=== PATIENT | female | born 1940 | race Caucasian/White ===

== ENCOUNTER 2017-02-24 09:57 | Outpatient (CLI) | payer OTHER ==
--- NOTE | 2017-02-24 10:46 | DIAGNOSTIC IMAGING REPORT ---
PROCEDURE: DEXA BONE DENSITY STUDY CLINICAL INDICATION: SCREENING COMPARISON: DEXA dated 11/17/2014 FINDINGS: LUMBAR SPINE: Bone mineral density 1.174 g/cm2, T score 1.2 normal which represents a 1.2% decrease from the previous study LEFT HIP: Bone mineral density 0.871 g/cm2, T score -0.6 normal which represents a 6.5% decrease from the previous study LEFT FEMORAL NECK: Bone mineral density 0.701 g/cm2, T score -1.3 osteopenia which represents a 9% decrease from the previous study FRACTURE RISK CALCULATION ( when applicable): 10-year fracture risk of a major osteoporotic fracture 10% and of a hip fracture 1.8% (T score greater or equal to -1.0 to: NORMAL) (T score from -1.1 to -2.4: OSTEOPENIA) (T score ess than or equal to -2.5: OSTEOPOROSIS) IMPRESSION: 1. Femoral neck osteopenia with a 10-year major fracture risk of 10% and a hip fracture risk of 1.8%
--- NOTE | 2017-02-26 12:51 | DIAGNOSTIC IMAGING REPORT ---
PROCEDURE: MG BILATERAL SCREENING W/CAD INDICATION: SCREENING TECHNIQUE: Bilateral CC and MLO digital views. COMPARISON: Mammograms 11/17/2014, 11/14/2013 and right mammogram 11/11/2012. FINDINGS: Computer-aided detection applied. Mildly to moderately dense. No change. IMPRESSION: 1. Negative mammogram RESULT CODE: 1- Negative. A. A negative report should not delay biopsy if a dominant or clinically suspicious mass is present. 10-15% of cancers are not identified by x-ray. B. A negative report may reinforce clinical impression. C. Adenosis and dense breasts may obscure an underlying neoplasm. D. False positive reports average 6-10%. E.. A yearly screening mammogram is recommended. A reminder letter will be scheduled.
== END 2017-02-24 23:00 ==
LOC: MAM SRH 09:57
DX: Z12.31 Encounter for screening mammogram for malignant neoplasm of breast (principal); M85.88 Other specified disorders of bone density and structure, other site

== ENCOUNTER 2017-06-12 19:11 | Emergency (ER) | payer OTHER ==
--- NOTE | 2017-06-12 21:47 | ED CLINICAL REPORT ---
Clinical Report - Physicians/Mid Levels [facility] [address] [place] [address] 06/12/2017 19:14 [id number] Time Seen: 19:58. Arrived- By private vehicle. Historian- patient. HISTORY OF PRESENT ILLNESS Chief Complaint: Chief Complaint- face and Injury to right and left forearm. The injury happened just prior to arrival. The patient sustained a laceration from a blunt force (on her right forearm). She sustained a severe direct blow (The patient was driving her tractor. She accidentally struck a treewith the tractor and a large branch fell glancing off of her face and striking both of her forearms. She had no loss of consciousness And does not feel confused or dazed.). Occurred at home. Patient is experiencing mild pain. Patient also notes injury to the face and left upper extremity (forearm). REVIEW OF SYSTEMS The patient sustained a laceration. She has had new onset of swelling of the left forearm (moderate). No tingling, numbness, suspected foreign body, chills or fever. No sweats, calf pain, chest pain, cough or difficulty breathing. No pedal edema, palpitations, abdominal pain, constipation or diarrhea. No nausea, vomiting or urinary problems. All systems otherwise negative, except as recorded above. PAST HISTORY The patient's dominant hand is the right. Tetanus immunization status is unknown. SOCIAL HISTORY Never smoker. Occasional alcohol use. No drug use. She lives alone. Has good social support. FAMILY HISTORY No significant family medical history. ADDITIONAL NOTES The nursing notes have been reviewed. PHYSICAL EXAM Vital Signs: 06/12/2017 19:21 BP: 113/62. HR: 96. RR: 20. O2 saturation: 97%. Temp: 98.7 F. Pain level now: 4/10. Have been reviewed. Appearance: Alert. No acute distress. Head: Forehead: multiple small abrasions. Eyes: Pupils equal, round and reactive to light. ENT: Pharynx normal. Neck: Normal inspection. Neck supple. C-spine non-tender. No vertebral tenderness. CVS: Normal heart rate and rhythm. Heart sounds normal. Respiratory: No respiratory distress. Breath sounds normal. Abdomen: No visible injury. Soft and nontender. Bowel sounds normal. No organomegaly. No mass. Back: Normal inspection. ROM normal. No vertebral point tenderness. Skin: Skin warm and dry. Extremities: Right forearm: deep laceration greater than 5.0 cm located in the mid volar aspect of forearm. Neurovascular intact distally. Left forearm: large ecchymosis located in the mid volar aspect of forearm. Neurovascular intact distally. (with a hematoma). Neuro, Vascular and Tendons: Vascular status intact. Sensation intact. Motor intact. Tendon function intact. Neuro: No motor deficit. No sensory deficit. PROGRESS AND PROCEDURES Laceration Repair: Location: right forearm. Time-out completed immediately before the procedure. Length: 5.5cm. Complexity: intermediate (layer closure). Wound depth/shape- curved. Wound is clean. Distal neuro/vascular/tendon status normal. Local anesthesia provided using LET and 2% lidocaine with epi. Prepped with Betadine and Hibiclens. Wound explored, cleansed, irrigated and examined to the base in bloodless field extensively. No foreign material removed. Closure of superficial layer: interrupted 4-0 nylon (13 sutures). Closure of deep layer: interrupted 3-0 Vicryl (2 sutures). Post-procedure: she is stable and there are no complications. Bleeding is controlled and neuro-vascular status is intact distal to the wound. Dressing applied. Tetanus immunization given. Course of Care: Patient is stable. Patient/family counseled. Old medical records reviewed. Disposition: Discharged. Condition: stable. CLINICAL IMPRESSION Single deep laceration to the right forearm. Multiple superficial abrasions to the forehead. Single contusion with soft tissue hematoma to the left forearm. INSTRUCTIONS Apply ice for 20 minutes four times a day. Don't apply ice directly to skin and don't use while asleep. Warnings: COMPLICATIONS: Complications from this condition include: possible infection, possible foreign body remaining in the wound, possible injury to a nerve, possible injury to a tendon and possible injury to a ligament. Future problems may include infection, scarring, loss of function and pain. INFECTION: Watch for signs of infection (increasing heat and redness, pus-like drainage, swelling, or increased pain). Return or see your doctor if these signs occur. It is important to follow up with a physician for further evaluation and treatment. TETANUS: You were given a tetanus shot during your visit. Make a note for future reference. GENERAL WARNINGS: Return or contact your physician immediately if your condition worsens or changes unexpectedly, if not improving as expected, or if other problems arise. OTC Medications: Acetaminophen (available over the counter): take according to label instructions. Motrin (available over the counter): take according to label instructions. Understanding of the discharge instructions verbalized by patient. Follow-up with: Truong Rodney MD, [facility], , [address] [place] [address] Follow up in ten days for suture removal. Call for an appointment. (Electronically signed by Bulmaro Brumfield MD 06/13/2017 13:33)
--- NOTE | 2017-06-12 21:47 | ED ORDER SUMMARY ---
..... Patient: RUTHY URRUTIA OrderSheet [facility] VisitID: [id number] [place] [address] 76y, F Registration Date/Time: 06/12/2017 ORDER SHEET Weight: 88.4 kg (stated) Allergies: Anitbiotics GENERAL ORDERS: MEDICATION ORDERS: LET Topical 1 application (NOW) (20:04 06/12/2017 Yusra RODRIGUEZ) (Ack 20:05 HSoule) (21:02 HSoule) Oeswrls-Msgyzr-Lxttb Pertussis IM 0.5 mL (NOW) (21:44 06/12/2017 Kaylynn R.N. verbal order read back to Yusra RODRIGUEZ) (Ack 21:45 HSoule) (21:46 KKneish R.N.) IV FLUIDS: ORDER SHEET NOTES: [Electronically signed by Chitra Salgado R.N. (22:21 06/12/2017)] [Electronically signed by Bulmaro Brumfield MD (13:33 06/13/2017)] [Electronically locked/signed by Chitra Salgado R.N. (22:21 06/12/2017)]
--- NOTE | 2017-06-12 21:47 | ED ORDER SUMMARY ---
..... Patient: RUTHY URRUTIA OrderSheet [facility] VisitID: [id number] [place] [address] 76y, F Registration Date/Time: 06/12/2017 ORDER SHEET Weight: 88.4 kg (stated) Allergies: Anitbiotics GENERAL ORDERS: MEDICATION ORDERS: LET Topical 1 application (NOW) (20:04 06/12/2017 Yusra RODRIGUEZ) (Ack 20:05 HSoule) (21:02 HSoule) Zjdsokw-Xdxcmr-Cewow Pertussis IM 0.5 mL (NOW) (21:44 06/12/2017 Kaylynn R.N. verbal order read back to Yusra RODRIGUEZ) (Ack 21:45 HSoule) (21:46 KKneish R.N.) IV FLUIDS: ORDER SHEET NOTES: [Electronically signed by Chitra Salgado R.N. (22:21 06/12/2017)] [Electronically signed by Bulmaro Brumfield MD (13:33 06/13/2017)] [Electronically locked/signed by Chitra Salgado R.N. (22:21 06/12/2017)]
--- NOTE | 2017-06-12 21:47 | ED NURSING NOTES ---
Clinical Report - Nurses [facility] [address] [place] [address] 06/12/2017 19:14 Patient: RUTHY URRUTIA TRIAGE Triage time 19:Jun 12 2017. Acuity: LEVEL 3. Chief Complaint: Location of symptoms- right arm (lac). Alert. No acute distress. ELAINE COMA SCORE: [place] Coma Scale: 15- eyes open spontaneously (4); best verbal response- oriented x 4 (5); best motor response- obeys commands (6). --19:29 Chitra Salgado R.N. 19:21 06/12/17. BP: 113/62. HR: 96. RR: 20. O2 saturation: 97%. Temp: 98.7 F. Pain level now: 03/09. --19:29 Chitra Salgado R.N. Weight: 88.4 kg stated. Height/Length: 70 inches Per Patient. BMI: 28. --19:27 Chitra Salgado R.N. Medications LORazepam Oral. ProAir HFA Inhalation. --19:24 Chitra Salgado R.N. Flonase Nasal. --19:24 Chitra Salgado R.N. Soma Oral. --19:24 Chitra Salgado R.N. Allergies Anitbiotics. --19:25 Chitra Salgado R.N. History Arrived by private vehicle. Historian: patient. Accompanied by family. Injury occurred. Location of injuries: face, right forearm and left forearm. This occurred just prior to arrival. She has had swelling. 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 PAST MEDICAL HX: Tetanus status: unknown. Immunizations: status is unknown. Denies current . SOCIAL HX: Never smoker. Occasional alcohol use. No drug use. No infectious disease exposure. SELF HARM ASSESSMENT: A self harm assessment was performed. The patient answered "no" to the question "Do you have thoughts of harming or killing yourself?" and "Have you recently had thoughts about harming or killing others?". FALL RISK ASSESSMENT: Fall risk assessment completed. No fall risk identified. NUTRITIONAL RISK ASSESSMENT: The nutritional risk assessment revealed no deficiencies. FUNCTIONAL ASSESSMENT: Functional assessment: no impairments noted. LEARNING NEEDS ASSESSMENT: The learning needs assessment revealed no barriers. ABUSE ASSESSMENT: Abuse assessment: The patient was asked "Do you feel safe in your home?". SKIN INTEGRITY ASSESSMENT: Skin integrity risk assessment completed. No skin integrity risk identified. --19:29 Chitra Salgado R.N. PROBLEMS: Asthma. --19:26 Chitra Salgado R.N. ADDITIONAL SURGERIES: Adenoidectomy. Cholecystectomy. . Hysterectomy. --19:26 Chitra Salgado R.N. Interventions ID band on patient. To room. --19:29 Chitra Salgado R.N. PHYSICAL ASSESSMENT Ambulatory to room. GENERAL / NEURO / PSYCH: Oriented X 4. Alert. Appears in no acute distress. EXTREMITIES: Extremities exhibit normal ROM. Neuro-vascular status intact to the extremity. Right forearm: subcutaneous 3.0 cm laceration with controlled bleeding. Left forearm: tenderness, swelling, erythema and superficial 1.0 cm laceration. SKIN: Skin is warm and dry. --19:30 Chitra Salgado R.N. NURSING PROGRESS NOTES Patient gowned. Patient identifiers checked. Call light placed in reach. Side rails up x 1. Bed placed in lowest position. Brakes of bed on. --19:30 Chitra Salgado R.N. Wound irrigated with 500 mL sterile NS using a high-pressure irrigation system; patient tolerated procedure well. --19:56 Shaka Edith 21:02 06/12/2017 LET Topical Topical Solution 1 application. Placed on a cotton ball, applied to the laceration and secured with tape. Allergies verified. --21:02 Ginette Bender 21:45 06/12/2017 LAATMEE-[place]-PFOEI PERTUSSIS IM 0.5 mL given. (Lot#: [id number], expiration date: 05/05/2019, Agent Broker: sanofi pasteur). Given in the left deltoid. Allergies verified and confirmed 5 rights. Vaccine information statement provided to the patient. --21:46 Chitra Salgado R.N. DISPOSITION / DISCHARGE Condition at departure: improved. No learning barriers present. Discharge instructions provided and reviewed with the patient. Reviewed referral to a primary care physician for followup. Patient verbalized understanding. Written instructions provided in French. The patient was discharged home. She left the Emergency Department ambulatory and via private vehicle. Patient driving. FALL RISK ASSESSMENT: Fall risk assessment completed. No fall risk identified. --21:48 Chitra Salgado R.N. 21:46 06/12/17. BP: 112/58. HR: 91. RR: 16. O2 saturation: 98%. Pain level now: 01/09. --21:48 Chitra Salgado R.N. Departure time: 21:50 Jun 12 2017. --22:20 Chitra Salgado R.N. Locked/Released at 06/12/2017 22:21 by Chitra Salgado R.N.
--- NOTE | 2017-06-12 21:47 | ED CLINICAL REPORT ---
Clinical Report - Physicians/Mid Levels [facility] [address] [place] [address] 06/12/2017 19:14 [id number] Time Seen: 19:58. Arrived- By private vehicle. Historian- patient. HISTORY OF PRESENT ILLNESS Chief Complaint: Chief Complaint- face and Injury to right and left forearm. The injury happened just prior to arrival. The patient sustained a laceration from a blunt force (on her right forearm). She sustained a severe direct blow (The patient was driving her tractor. She accidentally struck a treewith the tractor and a large branch fell glancing off of her face and striking both of her forearms. She had no loss of consciousness And does not feel confused or dazed.). Occurred at home. Patient is experiencing mild pain. Patient also notes injury to the face and left upper extremity (forearm). REVIEW OF SYSTEMS The patient sustained a laceration. She has had new onset of swelling of the left forearm (moderate). No tingling, numbness, suspected foreign body, chills or fever. No sweats, calf pain, chest pain, cough or difficulty breathing. No pedal edema, palpitations, abdominal pain, constipation or diarrhea. No nausea, vomiting or urinary problems. All systems otherwise negative, except as recorded above. PAST HISTORY The patient's dominant hand is the right. Tetanus immunization status is unknown. SOCIAL HISTORY Never smoker. Occasional alcohol use. No drug use. She lives alone. Has good social support. FAMILY HISTORY No significant family medical history. ADDITIONAL NOTES The nursing notes have been reviewed. PHYSICAL EXAM Vital Signs: 06/12/2017 19:21 BP: 113/62. HR: 96. RR: 20. O2 saturation: 97%. Temp: 98.7 F. Pain level now: 4/10. Have been reviewed. Appearance: Alert. No acute distress. Head: Forehead: multiple small abrasions. Eyes: Pupils equal, round and reactive to light. ENT: Pharynx normal. Neck: Normal inspection. Neck supple. C-spine non-tender. No vertebral tenderness. CVS: Normal heart rate and rhythm. Heart sounds normal. Respiratory: No respiratory distress. Breath sounds normal. Abdomen: No visible injury. Soft and nontender. Bowel sounds normal. No organomegaly. No mass. Back: Normal inspection. ROM normal. No vertebral point tenderness. Skin: Skin warm and dry. Extremities: Right forearm: deep laceration greater than 5.0 cm located in the mid volar aspect of forearm. Neurovascular intact distally. Left forearm: large ecchymosis located in the mid volar aspect of forearm. Neurovascular intact distally. (with a hematoma). Neuro, Vascular and Tendons: Vascular status intact. Sensation intact. Motor intact. Tendon function intact. Neuro: No motor deficit. No sensory deficit. PROGRESS AND PROCEDURES Laceration Repair: Location: right forearm. Time-out completed immediately before the procedure. Length: 5.5cm. Complexity: intermediate (layer closure). Wound depth/shape- curved. Wound is clean. Distal neuro/vascular/tendon status normal. Local anesthesia provided using LET and 2% lidocaine with epi. Prepped with Betadine and Hibiclens. Wound explored, cleansed, irrigated and examined to the base in bloodless field extensively. No foreign material removed. Closure of superficial layer: interrupted 4-0 nylon (13 sutures). Closure of deep layer: interrupted 3-0 Vicryl (2 sutures). Post-procedure: she is stable and there are no complications. Bleeding is controlled and neuro-vascular status is intact distal to the wound. Dressing applied. Tetanus immunization given. Course of Care: Patient is stable. Patient/family counseled. Old medical records reviewed. Disposition: Discharged. Condition: stable. CLINICAL IMPRESSION Single deep laceration to the right forearm. Multiple superficial abrasions to the forehead. Single contusion with soft tissue hematoma to the left forearm. INSTRUCTIONS Apply ice for 20 minutes four times a day. Don't apply ice directly to skin and don't use while asleep. Warnings: COMPLICATIONS: Complications from this condition include: possible infection, possible foreign body remaining in the wound, possible injury to a nerve, possible injury to a tendon and possible injury to a ligament. Future problems may include infection, scarring, loss of function and pain. INFECTION: Watch for signs of infection (increasing heat and redness, pus-like drainage, swelling, or increased pain). Return or see your doctor if these signs occur. It is important to follow up with a physician for further evaluation and treatment. TETANUS: You were given a tetanus shot during your visit. Make a note for future reference. GENERAL WARNINGS: Return or contact your physician immediately if your condition worsens or changes unexpectedly, if not improving as expected, or if other problems arise. OTC Medications: Acetaminophen (available over the counter): take according to label instructions. Motrin (available over the counter): take according to label instructions. Understanding of the discharge instructions verbalized by patient. Follow-up with: Truong Rodney MD, [facility], , [address] [place] [address] Follow up in ten days for suture removal. Call for an appointment. (Electronically signed by Bulmaro Brumfield MD 06/13/2017 13:33)
--- NOTE | 2017-06-12 21:47 | ED NURSING NOTES ---
Clinical Report - Nurses [facility] [address] [place] [address] 06/12/2017 19:14 Patient: RUTHY URRUTIA TRIAGE Triage time 19:Jun 12 2017. Acuity: LEVEL 3. Chief Complaint: Location of symptoms- right arm (lac). Alert. No acute distress. ELAINE COMA SCORE: [place] Coma Scale: 15- eyes open spontaneously (4); best verbal response- oriented x 4 (5); best motor response- obeys commands (6). --19:29 Chitra Salgado R.N. 19:21 06/12/17. BP: 113/62. HR: 96. RR: 20. O2 saturation: 97%. Temp: 98.7 F. Pain level now: 03/09. --19:29 Chitra Salgado R.N. Weight: 88.4 kg stated. Height/Length: 70 inches Per Patient. BMI: 28. --19:27 Chitra Salgado R.N. Medications LORazepam Oral. ProAir HFA Inhalation. --19:24 Chitra Salgado R.N. Flonase Nasal. --19:24 Chitra Salgado R.N. Soma Oral. --19:24 Chitra Salgado R.N. Allergies Anitbiotics. --19:25 Chitra Salgado R.N. History Arrived by private vehicle. Historian: patient. Accompanied by family. Injury occurred. Location of injuries: face, right forearm and left forearm. This occurred just prior to arrival. She has had swelling. 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 PAST MEDICAL HX: Tetanus status: unknown. Immunizations: status is unknown. Denies current . SOCIAL HX: Never smoker. Occasional alcohol use. No drug use. No infectious disease exposure. SELF HARM ASSESSMENT: A self harm assessment was performed. The patient answered "no" to the question "Do you have thoughts of harming or killing yourself?" and "Have you recently had thoughts about harming or killing others?". FALL RISK ASSESSMENT: Fall risk assessment completed. No fall risk identified. NUTRITIONAL RISK ASSESSMENT: The nutritional risk assessment revealed no deficiencies. FUNCTIONAL ASSESSMENT: Functional assessment: no impairments noted. LEARNING NEEDS ASSESSMENT: The learning needs assessment revealed no barriers. ABUSE ASSESSMENT: Abuse assessment: The patient was asked "Do you feel safe in your home?". SKIN INTEGRITY ASSESSMENT: Skin integrity risk assessment completed. No skin integrity risk identified. --19:29 Chitra Salgado R.N. PROBLEMS: Asthma. --19:26 Chitra Salgado R.N. ADDITIONAL SURGERIES: Adenoidectomy. Cholecystectomy. . Hysterectomy. --19:26 Chitra Salgado R.N. Interventions ID band on patient. To room. --19:29 Chitra Salgado R.N. PHYSICAL ASSESSMENT Ambulatory to room. GENERAL / NEURO / PSYCH: Oriented X 4. Alert. Appears in no acute distress. EXTREMITIES: Extremities exhibit normal ROM. Neuro-vascular status intact to the extremity. Right forearm: subcutaneous 3.0 cm laceration with controlled bleeding. Left forearm: tenderness, swelling, erythema and superficial 1.0 cm laceration. SKIN: Skin is warm and dry. --19:30 Chitra Salgado R.N. NURSING PROGRESS NOTES Patient gowned. Patient identifiers checked. Call light placed in reach. Side rails up x 1. Bed placed in lowest position. Brakes of bed on. --19:30 Chitra Salgado R.N. Wound irrigated with 500 mL sterile NS using a high-pressure irrigation system; patient tolerated procedure well. --19:56 Shaka Edith 21:02 06/12/2017 LET Topical Topical Solution 1 application. Placed on a cotton ball, applied to the laceration and secured with tape. Allergies verified. --21:02 Ginette Bender 21:45 06/12/2017 [id number]-TVPJFK-AAABO PERTUSSIS IM 0.5 mL given. (Lot#: [id number], expiration date: 05/05/2019, Grease Monkey: sanofi pasteur). Given in the left deltoid. Allergies verified and confirmed 5 rights. Vaccine information statement provided to the patient. --21:46 Chitra Salgado R.N. DISPOSITION / DISCHARGE Condition at departure: improved. No learning barriers present. Discharge instructions provided and reviewed with the patient. Reviewed referral to a primary care physician for followup. Patient verbalized understanding. Written instructions provided in [place]. The patient was discharged home. She left the Emergency Department ambulatory and via private vehicle. Patient driving. FALL RISK ASSESSMENT: Fall risk assessment completed. No fall risk identified. --21:48 Chitra Salgado R.N. 21:46 06/12/17. BP: 112/58. HR: 91. RR: 16. O2 saturation: 98%. Pain level now: 01/09. --21:48 Chitra Salgado R.N. Departure time: 21:50 Jun 12 2017. --22:20 Chitra Salgado R.N. Locked/Released at 06/12/2017 22:21 by Chitra Salgado R.N.
--- NOTE | 2017-06-13 13:33 | ED MED RECONCILIATION SUMMARY ---
Patient: RUTHY URRUTIA Medication Reconciliation Report [facility] VisitID: [id number] [address] [place] [address] 76y, F Registration Date/Time: 06/12/2017 Weight: 88.4 kg Height/Length: 70 in. BMI: 28.0 ALLERGIES: Anitbiotics The patient's Home Medications are listed below: THE FOLLOWING MEDICATIONS NEED TO BE RECONCILED: Flonase Nasal LORazepam Oral ProAir HFA Inhalation Soma Oral The source(s) of the original Home Medication information: Not obtained. The following Medications were given to the patient in the Emergency Department: LET [Topical] Topical 1 application, administered: 06/12/2017 9:02:00 PM [id number]-IHDSB PERTUSSIS [IM] IM 0.5 mL, administered: 06/12/2017 9:45:00 PM The following Medications were prescribed to the patient: Acetaminophen (available over the counter): take according to label instructions. -- Bulmaro Brumfield MD Motrin (available over the counter): take according to label instructions. -- Bulmaro Brumfield MD
--- NOTE | 2017-06-13 13:33 | ED MAR SUMMARY ---
..... Medication Administration Record Formerly [facility] [address] [place] [address] Patient: RUTHY URRUTIA Visit ID: [id number] 76y, F Weight: 88.4 kg Height/Length: 70 in BMI: 28 ALLERGIES: Anitbiotics Given 21:02 06/12/2017 Ginette Bender, Medication Administered: LET [TOPICAL], Dose: 1 application Topical Solution Topical. Medication Ordered: LET Topical 1 application (NOW). Given 21:45 06/12/2017 Chitra Salgado R.N. Medication Administered: [id number]-[id number] PERTUSSIS [IM], Dose: 0.5 mL IM. Medication Ordered: Hzrcqpj-Wsuiyw-Bfuel Pertussis IM 0.5 mL (NOW).
--- NOTE | 2017-06-13 13:33 | ED DISCHARGE INSTRUCTIONS ---
Patient: RUTHY URRUTIA General Instructions [facility] VisitID: [id number] [place] [id number] 76[place], F Registration Date/Time: 06/12/2017 Single deep laceration to the right forearm. Multiple superficial abrasions to the forehead. Single contusion with soft tissue hematoma to the left forearm. INSTRUCTIONS Apply ice for 20 minutes four times a day. Don't apply ice directly to skin and don't use while asleep. Warnings: COMPLICATIONS: Complications from this condition include: possible infection, possible foreign body remaining in the wound, possible injury to a nerve, possible injury to a tendon and possible injury to a ligament. Future problems may include infection, scarring, loss of function and pain. INFECTION: Watch for signs of infection (increasing heat and redness, pus-like drainage, swelling, or increased pain). Return or see your doctor if these signs occur. It is important to follow up with a physician for further evaluation and treatment. TETANUS: You were given a tetanus shot during your visit. Make a note for future reference. GENERAL WARNINGS: Return or contact your physician immediately if your condition worsens or changes unexpectedly, if not improving as expected, or if other problems arise. OTC Medications: Acetaminophen (available over the counter): take according to label instructions. Motrin (available over the counter): take according to label instructions. Understanding of the discharge instructions verbalized by patient. Follow-up with: Truong Rodney MD, [facility], , [address] [place] [address] Follow up in ten days for suture removal. Call for an appointment. ADDITIONAL INFORMATION Laceration, Extremity (Sutures, [place], Or Tape) A laceration is a cut through the skin. This will usually require stitches (sutures) or reema if it is deep. Minor cuts may be treated with surgical tape closures. Home care The following guidelines will help you care for your laceration at home: Keep the wound clean and dry. If a bandage was applied and it becomes wet or dirty, replace it. Otherwise, leave it in place for the first 24 hours, then change it once a day or as directed. If stitches or reema were used, clean the wound daily: After removing the bandage, wash the area with soap and water. Use a wet cotton swab to loosen and remove any blood or crust that forms. After cleaning, keep the wound clean and dry. Talk with your doctor before applying any antibiotic ointment to the wound. Reapply the bandage. You may remove the bandage to shower as usual after the first 24 hours, but do not soak the area in water (no swimming) until the stitches or reema are removed. If surgical tape closures were used, keep the area clean and dry. If it becomes wet, blot it dry with a towel. The doctor may prescribe an antibiotic cream or ointment to prevent infection. Do not stop taking this medication until you have finished the prescribed course or the doctor tells you to stop. The doctor may also prescribe medications for pain. Follow the doctors instructions for taking these medications. If you have chronic liver or kidney disease or ever had a stomach ulcer or GI bleeding, talk with your doctor before using these medicines. Follow-up care Follow up with your health care provider. Most skin wounds heal within ten days. However, an infection may sometimes occur despite proper treatment. Therefore, check the wound daily for the signs of infection listed below. Stitches and reema should be removed within 714 days. If surgical tape closures were used, you may remove them after 10 days, if they have not fallen off by then. Notify your doctor if you notice persistent numbness or weakness in the injured extremity. (Note:A radiologist will review any X-rays that were taken. We will notify you of any new findings that may affect your care.) When to seek medical care Get prompt medical attention if any of these occur: Increasing pain in the wound Redness, swelling, or pus coming from the wound Fever of 100.4F (38C) or higher, or as directed by your health care provider If stitches or reema come apart or fall out before your next appointment If the surgical tape closures fall off within seven days, or the wound edges re-open Bleeding not controlled by direct pressure Contusion:Upper Extremity You have a contusion of your upper extremity (arm, wrist, hand or fingers). This causes local pain, swelling and sometimes bruising. There are no broken bones. This injury takes a few days to a few weeks to heal. A sling may be provided for comfort and arm support. Home Care: 1) Keep your arm elevated to reduce pain and swelling. This is very important during the first 48 hours. 2) Apply an ice pack (ice cubes in a plastic bag, wrapped in a towel) over the injured area for 20 minutes every 1-2 hours the first day for pain relief. Continue this 3-4 times a day until the pain and swelling goes away. 3) You may use acetaminophen (Tylenol) or ibuprofen (Motrin, Advil) to control pain, unless another pain medicine was prescribed. [ NOTE : If you have chronic liver or kidney disease or ever had a stomach ulcer or GI bleeding, talk with your doctor before using these medicines.] 4) If a sling was provided, you may remove it to shower or bathe. Do not wear it for more than one week or it may cause joint stiffness. Follow Up with your doctor or this facility if you are not starting to improve within the next THREE days. [NOTE: If X-rays were taken, they will be reviewed by a radiologist. You will be notified of any new findings that may affect your care.] Get Prompt Medical Attention if any of the following occur: -- Pain or swelling increases -- Redness, warmth or drainage -- Hand or fingers becomes cold, blue, numb or tingly Diphtheria Toxoid Adsorbed, Pertussis Vaccine, Acellular (Adsorbed), Tetanus Toxoid, Adsorbed Suspension for injection What is this medicine? DIPHTHERIA and TETANUS TOXOIDS; PERTUSSIS VACCINE (dif THEER ee uh and TET n us TOK soids; per TUS iss vak SEEN) is used to prevent diphtheria, tetanus, and pertussis infections. How should I use this medicine? This vaccine is for injection into a muscle. It is given by a health managed care nurse. A copy of Vaccine Information Statements will be given before each vaccination. Read this sheet carefully each time. The sheet may change frequently. Talk to your search engine optimizer regarding the use of this vaccine in children. While the DTP vaccine may be given to children ages 6 weeks to 7 years and the Tdap vaccine may be given to children at least 10 years old, precautions do apply. What side effects may I notice from receiving this medicine? Side effects that you should report to your doctor or health managed care nurse as soon as possible: allergic reactions like skin rash, itching or hives, swelling of the face, lips, or tongue breathing problems fever of 103 degrees F or more flu-like symptoms inconsolable crying infection pain, tingling, numbness in the hands or feet seizures swelling of arm or leg that was injected unusually weak or tired Side effects that usually do not require immediate medical attention (report these side effects to your doctor or health managed care nurse if they continue or are bothersome): fussy, irritable loss of appetite fever of 102 degrees F or less pain, tenderness, redness, swelling, or a 'knot' at site where injected vomiting What may interact with this medicine? immune globulin medicines that suppress your immune function like adalimumab, anakinra, infliximab medicines to treat cancer medicines that treat or prevent blood clots like warfarin, enoxaparin, and dalteparin steroid medicines like prednisone or cortisone What if I miss a dose? It is important not to miss your dose. Call your doctor or health managed care nurse if you are unable to keep an appointment. Where should I keep my medicine? This drug is given in a hospital or clinic and will not be stored at home. What should I tell my health care provider before I take this medicine? They need to know if you have any of these conditions: blood disorders like hemophilia fever or infection immune system problems neurologic disease seizures an unusual or allergic reaction to vaccines, thimerosal, latex, other medicines, foods, dyes, or preservatives or trying to get breast-feeding What should I watch for while using this medicine? See your health care provider for all shots of this vaccine as directed. To have protection from infection, you must have 3 shots of this vaccine plus boosters as needed. Tell your doctor right away if you have any serious or unusual side effects after getting this vaccine. Acetaminophen Oral tablet What is this medicine? ACETAMINOPHEN (a set a CHAIM cintia fen) is a pain reliever. It is used to treat mild pain and fever. How should I use this medicine? Take this medicine by mouth with a glass of water. Follow the directions on the package or prescription label. Take your medicine at regular intervals. Do not take your medicine more often than directed. Talk to your search engine optimizer regarding the use of this medicine in children. While this drug may be prescribed for children as young as 6 years of age for selected conditions, precautions do apply. What side effects may I notice from receiving this medicine? Side effects that you should report to your doctor or health managed care nurse as soon as possible: allergic reactions like skin rash, itching or hives, swelling of the face, lips, or tongue breathing problems fever or sore throat redness, blistering, peeling or loosening of the skin, including inside the mouth trouble passing urine or change in the amount of urine unusual bleeding or bruising unusually weak or tired yellowing of the eyes or skin Side effects that usually do not require medical attention (report to your doctor or health managed care nurse if they continue or are bothersome): headache nausea, stomach upset What may interact with this medicine? alcohol imatinib isoniazid other medicines with acetaminophen What if I miss a dose? If you miss a dose, take it as soon as you can. If it is almost time for your next dose, take only that dose. Do not take double or extra doses. Where should I keep my medicine? Keep out of reach of children. Store at room temperature between 20 and 25 degrees C (68 and 77 degrees F). Protect from moisture and heat. Throw away any unused medicine after the expiration date. What should I tell my health care provider before I take this medicine? They need to know if you have any of these conditions: if you frequently drink alcohol containing drinks liver disease an unusual or allergic reaction to acetaminophen, other medicines, foods, dyes or preservatives or trying to get breast-feeding What should I watch for while using this medicine? Tell your doctor or health managed care nurse if the pain lasts more than 10 days (5 days for children), if it gets worse, or if there is a new or different kind of pain. Also, check with your doctor if a fever lasts for more than 3 days. Do not take other medicines that contain acetaminophen with this medicine. Always read labels carefully. If you have questions, ask your doctor or pharmacist. If you take too much acetaminophen get medical help right away. Too much acetaminophen can be very dangerous and cause liver damage. Even if you do not have symptoms, it is important to get help right away. Ibuprofen Oral tablet What is this medicine? IBUPROFEN (eye BYOO proe fen) is a non-steroidal anti-inflammatory drug (NSAID). It is used for dental pain, fever, headaches or migraines, osteoarthritis, rheumatoid arthritis, or painful monthly periods. It can also relieve minor aches and pains caused by a cold, flu, or sore throat. How should I use this medicine? Take this medicine by mouth with a glass of water. Follow the directions on the prescription label. Take this medicine with food if your stomach gets upset. Try to not lie down for at least 10 minutes after you take the medicine. Take your medicine at regular intervals. Do not take your medicine more often than directed. A special MedGuide will be given to you by the pharmacist with each prescription and refill. Be sure to read this information carefully each time. Talk to your search engine optimizer regarding the use of this medicine in children. Special care may be needed. What side effects may I notice from receiving this medicine? Side effects that you should report to your doctor or health managed care nurse as soon as possible: allergic reactions like skin rash, itching or hives, swelling of the face, lips, or tongue black or bloody stools, blood in the urine or in vomit breathing problems changes in vision chest pain general ill feeling or flu-like symptoms nausea or vomiting redness, blistering, peeling or loosening of the skin, including inside the mouth slurred speech or weakness on one side of the body stomach pain unexplained weight gain or swelling unusually weak or tired yellowing of eyes or skin Side effects that usually do not require medical attention (report to your doctor or health managed care nurse if they continue or are bothersome): constipation or diarrhea dizziness gas or heartburn stomach upset What may interact with this medicine? Do not take this medicine with any of the following medications: cidofovir ketorolac methotrexate pemetrexed This medicine may also interact with the following medications: alcohol aspirin diuretics lithium other drugs for inflammation like prednisone warfarin What if I miss a dose? If you miss a dose, take it as soon as you can. If it is almost time for your next dose, take only that dose. Do not take double or extra doses. Where should I keep my medicine? Keep out of the reach of children. Store at room temperature between 15 and 30 degrees C (59 and 86 degrees F). Keep container tightly closed. Throw away any unused medicine after the expiration date. What should I tell my health care provider before I take this medicine? They need to know if you have any of these conditions: asthma cigarette smoker drink more than 3 alcohol containing drinks a day heart disease or circulation problems such as heart failure or leg edema (fluid retention) high blood pressure kidney disease liver disease stomach bleeding or ulcers an unusual or allergic reaction to ibuprofen, aspirin, other NSAIDS, other medicines, foods, dyes, or preservatives or trying to get breast-feeding What should I watch for while using this medicine? Tell your doctor or healthcare professional if your symptoms do not start to get better or if they get worse. This medicine does not prevent heart attack or stroke. In fact, this medicine may increase the chance of a heart attack or stroke. The chance may increase with longer use of this medicine and in people who have heart disease. If you take aspirin to prevent heart attack or stroke, talk with your doctor or health managed care nurse. Do not take other medicines that contain aspirin, ibuprofen, or naproxen with this medicine. Side effects such as stomach upset, nausea, or ulcers may be more likely to occur. Many medicines available without a prescription should not be taken with this medicine. This medicine can cause ulcers and bleeding in the stomach and intestines at any time during treatment. Ulcers and bleeding can happen without warning symptoms and can cause . To reduce your risk, do not smoke cigarettes or drink alcohol while you are taking this medicine. You may get drowsy or dizzy. Do not drive, use machinery, or do anything that needs mental alertness until you know how this medicine affects you. Do not stand or sit up quickly, especially if you are an older patient. This reduces the risk of dizzy or fainting spells. This medicine can cause you to bleed more easily. Try to avoid damage to your teeth and gums when you brush or floss your teeth. You have been given the following additional information: Laceration, Extrem (Suture, Staple, Or Tape) Contusion, Upper Extremity Diphtheria Toxoid Adsorbed, Pertussis Vaccine, Acellular (Adsorbed), Tetanus Toxoid, Adsorbed Suspension for injection Acetaminophen Oral tablet Ibuprofen Oral tablet (Electronically signed by Bulmaro Brumfield MD 06/13/2017 13:33)
--- NOTE | 2017-06-13 13:33 | ED MAR SUMMARY ---
..... Medication Administration Record [facility] [address] [place] [address] Patient: RUTHY URRUTIA Visit ID: [id number] 76y, F Weight: 88.4 kg Height/Length: 70 in BMI: 28 ALLERGIES: Anitbiotics Given 21:02 06/12/2017 Ginette Bender, Medication Administered: LET [TOPICAL], Dose: 1 application Topical Solution Topical. Medication Ordered: LET Topical 1 application (NOW). Given 21:45 06/12/2017 Chitra Salgado R.N. Medication Administered: [id number] PERTUSSIS [IM], Dose: 0.5 mL IM. Medication Ordered: Ywihnqt-Opcweq-Krkqw Pertussis IM 0.5 mL (NOW).
--- NOTE | 2017-06-13 13:33 | ED MED RECONCILIATION SUMMARY ---
Patient: RUTHY URRUTIA Medication Reconciliation Report [facility] VisitID: [id number] [address] [place] [address] 76y, F Registration Date/Time: 06/12/2017 Weight: 88.4 kg Height/Length: 70 in. BMI: 28.0 ALLERGIES: Anitbiotics The patient's Home Medications are listed below: THE FOLLOWING MEDICATIONS NEED TO BE RECONCILED: Flonase Nasal LORazepam Oral ProAir HFA Inhalation Soma Oral The source(s) of the original Home Medication information: Not obtained. The following Medications were given to the patient in the Emergency Department: LET [Topical] Topical 1 application, administered: 06/12/2017 9:02:00 PM [id number] PERTUSSIS [IM] IM 0.5 mL, administered: 06/12/2017 9:45:00 PM The following Medications were prescribed to the patient: Acetaminophen (available over the counter): take according to label instructions. -- Bulmaro Brumfield MD Motrin (available over the counter): take according to label instructions. -- Bulmaro Brumfield MD
== END 2017-06-12 21:50 | disposition home or self-care (01) ==
LOC: ED SRH 19:11
DX: S51.811A Laceration without foreign body of right forearm, initial encounter (principal); S50.12XA Contusion of left forearm, initial encounter; S00.81XA Abrasion of other part of head, initial encounter; V84.5XXA Driver of special agricultural vehicle injured in nontraffic accident, initial encounter; W20.8XXA Other cause of strike by thrown, projected or falling object, initial encounter; Y92.79 Other farm location as the place of occurrence of the external cause; Z23 Encounter for immunization; Y99.8 Other external cause status; Z88.1 Allergy status to other antibiotic agents; J45.909 Unspecified asthma, uncomplicated; Z79.899 Other long term (current) drug therapy